=== PATIENT | female | born 1970 | race Caucasian/White ===

== ENCOUNTER → 2018-05-05 | Outpatient (CLI) | payer OTHER ==
[2018-05-05 13:35] VITALS: BP 121/82
--- NOTE | 2018-05-05 14:15 | P.GSHP ---
History of Present Illness H&P Date: 05/05/18 The patient is a 48-year-old white female who states that several weeks ago she had some itching of her left nipple. She scratched the area and she noted that she has some discharge. The discharge was brown in nature and occurred spontaneously whether she itched or not. She still continues to have some spontaneous discharge. She has no masses in her breast. She has no pain in her breast. She had a bilateral mammogram performed 04/21 18 which showed a 1.2 cm round circumscribed mass at the 2 o'clock position of the left breast. This was new from prior exam. Otherwise no significant change. Nothing of concern noted in the right breast. The plan was for ultrasound of the left breast in the subareolar region as well as the upper outer quadrant area at the 2 o'clock position. These results are to be reviewed. The patient drinks green tea at least 5-6 bottles per day. The patient smokes at about three quarters of a pack of cigarettes per day. family history: 1. none for cancer past surgical history: 1. hysterectomy: bleeding/prolapsed uterus took, one ovary 2. oral surgery 3. cataract surgery past medical history: 1. asthma 2. thyroid in the past/hyperthyroid 3. pituitary told abnormal twenty years ago menarche: 15 hysterectomy: 40 BCP/hormones: none : 3, 2 children breast fed both ROS: HEENT:cataract surgery 4 years ago Lungs: none heart: none GI: none Gu: hysterctomy as noted allergies: seasonal gets shots two times a week neruologic: none Psych: none Social history: smoke: 3/4 PPD alcohol: twice a week drugs: marijuana in the past, not for 28 years - Constitutional Constitutional: Denies chills, Denies fever - EENT Eyes: bilateral as per HPI Ears: left: decreased hearing, ear discharge (left ear drum ruptured in the past ), earache, deny: tinnitus Ears, nose, mouth and throat: Denies headache, Denies sore throat - Breasts Breasts: bilateral: as per HPI - Cardiovascular Cardiovascular: Denies chest pain, Denies shortness of breath - Respiratory Comment: asthma, smoker Respiratory: Denies cough, Denies 7 - Gastrointestinal Gastrointestinal: Denies abdominal pain, Denies diarrhea, Denies nausea, Denies vomiting - Genitourinary (Female) Genitourinary: Reports as per HPI, Denies dysuria, Denies hematuria - Musculoskeletal Musculoskeletal: Denies myalgias - Integumentary Comment: hives at times possible nerves Integumentary: Denies pruritus, Denies rash - Neurological Neurological: Denies numbness, Denies weakness - Psychiatric Psychiatric: Denies anxiety, Denies depression - Endocrine Comment: weight loss after oral surgery Endocrine: Reports weight change, Denies fatigue - Hematologic/Lymphatic Comment: now ibuprofen not regularly - Allergic/Immunologic Allergic/Immunologic: Reports seasonal allergies Past Medical History Past Medical History: Asthma History of Any Multi-Drug Resistant Organisms: None Reported Past Surgical History: Hysterectomy, Tubal Ligation Additional Past Surgical History / Comment(s): D & C, LAPAROSCOPY, HYSTEROSCOPY , LEFT CATARACT. Past Anesthesia/Blood Transfusion Reactions: No Reported Reaction Additional Past Anesthesia/Blood Transfusion Reaction / Comment(s): SLOW TO WAKE UP Smoking Status: Current every day smoker - Past Family History Mother Family Medical History: No Reported History Medications and Allergies Home Medications Medication Instructions Recorded Confirmed Type Calcium Carbonate [Calcium] 600 mg PO DAILY 11/27/15 03/17/16 History 114/Iron A-G/Folate 1 1 each PO DAILY 11/27/15 03/17/16 History [Prenate Elite Tablet] Vitamin E 1,000 unit PO DAILY 11/27/15 03/17/16 History Albuterol Inhaler [Ventolin Hfa 1 - 2 puff INHALATION Q6HR PRN 03/13/16 History Inhaler] Allergies Allergy/AdvReac Type Severity Reaction Status Date / Time Sulfa (Sulfonamide Allergy Rash/Hives Verified 03/17/16 12:53 Antibiotics) Surgical - Exam Vital Signs BP 121/82 05/05/18 13:29 - General well developed, well nourished, no distress - Eyes normal ocular movement, no icteric - ENT normal pinna, no hearing loss - Neck no masses, trachea midline, no lymphadectomy - Respiratory normal respiratory effort, clear to auscultation - Cardiovascular Rhythm: regular Heart Sounds: normal: S1, S2 - Abdomen Abdomen: soft, non tender, no guarding, no rigid, no rebound - Integumentary hives - Neurologic no disoriented, no combative - Psychiatric oriented to time, oriented to person, oriented to place, speech is normal, memory intact Breast examination: Right breast: Multiple positional exam no dominant masses or nodules of concern Right axilla: No adenopathy of concern Left breast: Multi-positional exam fibrocystic changes and the patient is noted to have nipple discharge with examination in the 6 oclock area of the nipple, the nipple discharge is yellow brown in nature, it occurs with manipulation. Evaluation of the areola does not reveal any specific changes of concern. Left axilla: No adenopathy of concern Hemoccult was performed of the discharge and this was negative for blood A slide was obtained of the discharge and this is being sent for cytology Results Reports of mammogram and ultrasound reviewed Assessment and Plan Assessment: Impression/plan: 1. Nipple discharge left breast with itching noted 2. Discharge Hemoccult negative 3. Cytology obtained 4. Recent oral surgery 5. Questionable pituitary lesion in the past 6. ? hyperthyroid in the past 7. hives Plan: 1. Hydrocortisone cream to affected area of the areola 2.5% to be applied twice a day 2. Await cytology 3. Suspect nipple discharge is related to fibrocystic disease 4. Medical management of medical problems 5. Follow-up in 2 weeks Cc: Dr. Arciniega
== END | disposition home or self-care (01) ==
LOC: WWCWWP 13:25
PROVIDERS: ATTEND Surgery
DX: N64.52 Nipple discharge (principal)
CPT/HCPCS: 88160

== ENCOUNTER → 2018-05-12 | Outpatient (CLI) | payer OTHER ==
[2018-05-12 13:27] VITALS: BP 141/87; PULSE 96; BMI 17.5
--- NOTE | 2018-05-12 13:36 | P.PN ---
Progress Note - Text Progress Note Date: 05/12/18 Patient is a 48-year-old white female who presents status post aspiration of the cyst in the left breast. The cyst does not appear to have recurred after aspiration. There is no evidence of any infection the patient has no complaints. Pathology was benign. Additionally the patient had some itching around the area over area of which has decreased. She has been using hydrocortisone cream. There is no evidence of any excoriation or infection. Impression/plan: 1. Fibrocystic breast disease 2. Prior itching at the areolar area Plan: 1. Repeat ultrasound of the left breast in 6 months time with physician exam at that time 2. Patient notices any changes prior would like to see her sooner. Cc: Physician covering Dr. Cookie Mccall at [facility]
== END | disposition home or self-care (01) ==
LOC: WWCWWP 13:02
PROVIDERS: ATTEND Surgery
DX: Z53.9 Procedure and treatment not carried out, unspecified reason (principal)

== ENCOUNTER → 2018-11-11 | Outpatient (CLI) | payer OTHER ==
--- NOTE | 2018-11-14 07:57 | USB ---
Reason for exam: additional evaluation requested from prior study. Physical Findings: Nurse Summary: 1cm round, tender, movable lump right breast 1 'clock (nurse mj). US Breast Limited BILAT Right limited breast ultrasound including focal area of concern, retroareolar and axilla demonstrates a 0.7 x 0.5 x 0.7cm hypoechoic lesion at 11 o'clock and a 0.5 x 0.2 x 0.3cm lesion too small to characterize at 2 o'clock. Left complete breast ultrasound includes all four quadrants, the retroareolar region and axilla. Finding demonstrates a 0.6 x 0.4 x 0.5cm cystic lesion at 2 o'clock decreased from 04/21/18 and a 0.7 x 0.3 x 0.5cm cystic cluster at 4 o'clock. These results were verbally communicated with the patient and result sheet given to the patient on 11/11/18. ASSESSMENT: Suspicious, BI-RAD 4 RECOMMENDATION: Ultrasound core biopsy of the right breast. (11 'clock) Called with mammographic findings and has scheduled an appointment for the patient for 11/18/18 at 11:[address] [place]. Biopsy scheduled for 12/01/18 at 12:20. PRELIMINARY REPORT CALLED AND FAXED TO DR. CANADA ON 11/14/18.
== END | disposition home or self-care (01) ==
LOC: RADUSWWP 13:41
PROVIDERS: ATTEND Surgery
DX: R92.8 Other abnormal and inconclusive findings on diagnostic imaging of breast (principal)

== ENCOUNTER → 2018-11-18 | Outpatient (CLI) | payer OTHER ==
[2018-11-18 11:43] VITALS: BP 139/84; PULSE 82; RESP 18; TEMP 96.3; BMI 18.7
--- NOTE | 2018-11-18 12:01 | P.PN ---
Subjective Progress Note Date: 11/18/18 Principal diagnosis: abnormal ultrasound of the right breast Aaron is a 48-year-old white female who was seen initially in April 2018 with some itching of the left nipple area as well as an ultrasound change revealing a 1.2 cm round circumscribed mass at the 2 o'clock position of the left breast. She subsequently underwent aspiration of the area. She used hydrocortisone cream at the area of the skin around the nipple which has resolved. The patient most recently underwent a bilateral ultrasound on [id number]. On this ultrasound she is now noted to have a 0.7 cm hypoechoic lesion at 11:00 for which biopsy is recommended. The patient does not note any lumps or masses in her breast. The patient continues to drink green tea. And she continues to smoke approximately three quarters of pack of cigarettes per day. Family history: Negative for cancer Past surgical history: 1. Hysterectomy: Bleeding/prolapsed uterus 1 ovary removed 2. Oral surgery 3. Cataract surgery Past medical history: 1. Asthma 2. Thyroid in the past she was hyperthyroid 3. Pituitary told this was abnormal approximately 20 years ago Hormonal history: Menarche: 15 Hysterectomy: 40 control pills/hormones: None Pregnancies: 3, 2 children breast fed both Social history: Smoke: Three quarters pack of cigarettes per day Alcohol: Several times a week Drugs: Negative Review of systems: HEENT: Hyperthyroid in the past Lungs: Nicotine dependence, asthma Heart: Getting of GI: Negative : Hysterectomy Musculoskeletal: Negative Psychiatric: Negative Objective - Vital Signs Vital signs: Vital Signs Temp 96.3 F L 11/18/18 11:34 Pulse 82 11/18/18 11:34 Resp 18 11/18/18 11:34 BP 139/84 11/18/18 11:34 Pulse Ox 97 11/18/18 11:34 Intake & Output 11/17/18 11/18/18 11/18/18 18:59 06:59 18:59 Weight 49.442 kg - Exam BMI 18.7 - Constitutional General appearance: Present: cooperative, no acute distress, thin - EENT Eyes: Present: EOMI ENT: Present: hearing grossly normal - Neck Neck: Present: normal ROM - Respiratory Respiratory: bilateral: CTA, negative: dullness, rales, rhonchi - Cardiovascular Rhythm: regular Heart sounds: normal: S1, S2 - Gastrointestinal General gastrointestinal: Present: soft - Integumentary Integumentary: Present: normal turgor - Musculoskeletal Musculoskeletal: Present: gait normal - Psychiatric Psychiatric: Present: A&O x's 3, appropriate affect, intact judgment & insight - Additional findings Additional findings: Breast examination: Right breast: Breast is very dense on multi-positional exam some slight increased nodularity at the 2 o'clock position, attention at the 11 o'clock position reveals dense tissue but no discrete mass Right axilla: No adenopathy of concern Left breast: Dense breast tissue on multi-positional exam no discrete dominant mass or nodule of concern Left axilla: No adenopathy of concern Assessment and Plan Assessment: Impression: 1. Bilateral dense fibrocystic breast changes 2. Recent ultrasound reveals area of concern at 11:00 in the right breast for which ultrasound core biopsy recommended 3. Physical examination reveals increased nodularity at 2 o'clock position in the right breast will reevaluate after ultrasound core biopsy 4. Nicotine dependence 5. Asthma 6. hyperthyroid in the past Plan: 1. right breast ultrasound core biopsy/than follow up 2. re-evaluate 2:00 area of the right breast following the ultrasound core biopsy 3. Medical management of medical conditions CC: at [facility]
== END ==
LOC: WWCWWP 11:20
PROVIDERS: ATTEND Surgery
DX: Z53.9 Procedure and treatment not carried out, unspecified reason (principal)

== ENCOUNTER → 2018-12-01 | Day surgery (SDC) | payer OTHER ==
[2018-12-01 11:36] VITALS: RESP 16; BMI 17.8
--- NOTE | 2018-12-01 13:50 | USB ---
EXAMINATION TYPE: US biopsy breast VAD RT, MG diagnostic mammo RT wo CAD, US breast aspiration single RT DATE OF EXAM: 12/01/2018 CLINICAL HISTORY: ABNORMAL MAMMOGRAM. TECHNIQUE: Ultrasound guided core biopsy of right breast. COMPARISON: 11/11/2018 FINDINGS: The procedure of ultrasound guided core biopsy was explained to the patient. Benefits, alt ernatives, and risks were discussed. An informed consent was then obtained. Preprocedural timeout w as performed. SITE A: 11:00 mass. The patient was placed in supine positioning for imaging and for the procedure. T he overlying skin was prepped and draped in usual sterile fashion. 10 cc of lidocaine buffered with b icarbonate was used as anesthetic into the skin and subcutaneous tissue up to the 0.7 x 0.5 x 0.7 cm hypoechoic lesion at 11:00 position in the right breast. This mass appears possibly as a complicated cyst on today's examination. Under ultrasound guidance, a 12-gauge vacuum assisted biopsy gun device was used to obtain 4 core rajan ples. Following this, a coil-shaped biopsy marker was left directly adjacent to the mass. Postproce dural mammography demonstrates appropriate clip placement. SITE B: 2:00 mass. The patient was placed in supine positioning for imaging and for the procedure. Th e overlying skin was prepped and draped in usual sterile fashion. 10 cc of lidocaine buffered with bi carbonate was used as anesthetic into the skin and subcutaneous tissue up to the 2 x 3 mm mass at the 2:00 position in the right breast. Under ultrasound guidance an 18-gauge spinal needle was advanced into the mass, which collapsed upon puncture with the spinal needle. No significant fluid was withdrawn and therefore no fluid was availa ble to send to pathology. The patient tolerated the procedure well without any immediate complication. The patient was kept in the radiology department for short stay after the procedure and then discharged home in stable condi tion. IMPRESSION: Successful, uncomplicated ultrasound guided core biopsy of a mass, possibly complicated c yst, at the 11:00 position in the right breast, full pathology results to follow. Cyst aspiration of the 2:00 position in the right breast was also performed with no significant fluid retrieval.
[2018-12-01 15:11] VITALS: BP 137/87; PULSE 78; TEMP 98.1
== END | disposition home or self-care (01) ==
LOC: RADUSWWP 10:58
PROVIDERS: ATTEND Surgery
DX: N60.21 Fibroadenosis of right breast (principal); N60.31 Fibrosclerosis of right breast; N60.01 Solitary cyst of right breast; N60.81 Other benign mammary dysplasias of right breast
CPT/HCPCS: 88305; 77065; 19000; 19083; A4648; J2001; 76942

== ENCOUNTER → 2018-12-08 | Outpatient (CLI) | payer OTHER ==
[2018-12-08 15:30] VITALS: BP 145/84; PULSE 78; RESP 18; TEMP 97.7; BMI 17.8
--- NOTE | 2018-12-08 15:54 | P.PN ---
Subjective Progress Note Date: 12/08/18 Principal diagnosis: Status post ultrasound-guided core biopsy right breast The patient is a 48-year-old white female status post right breast ultrasound- guided core biopsy on 1318. Pathology was benign. The patient is doing well at this time. She does have some mild ecchymosis and slight swelling at the site. Objective - Vital Signs Vital signs: Vital Signs Temp 97.7 F 12/08/18 15:24 Pulse 78 12/08/18 15:24 Resp 18 12/08/18 15:24 BP 145/84 12/08/18 15:24 Pulse Ox 99 12/08/18 15:24 Intake & Output 12/07/18 12/08/18 12/08/18 18:59 06:59 18:59 Weight 47.174 kg - Exam BMI 17.9 - Constitutional General appearance: Present: average body habitus, cooperative - EENT Eyes: Present: EOMI ENT: Present: hearing grossly normal - Neck Neck: Present: normal ROM - Respiratory Respiratory: bilateral: CTA - Cardiovascular Rhythm: regular Heart sounds: normal: S1, S2 - Gastrointestinal General gastrointestinal: Present: soft - Integumentary Integumentary: Present: normal turgor - Musculoskeletal Musculoskeletal: Present: gait normal - Psychiatric Psychiatric: Present: A&O x's 3, appropriate affect - Additional findings Additional findings: Breast examination: Right breast: core biopsy site mild ecchymosis with a small hematoma no evidence of infection Assessment and Plan Assessment: Impression: 1. Fibrocystic breast changes right breast core biopsy site Plan: Right breast ultrasound in 6 months with physician exam at that time CC: [facility]
== END | disposition home or self-care (01) ==
LOC: WWCWWP 14:31
PROVIDERS: ATTEND Surgery
DX: Z53.9 Procedure and treatment not carried out, unspecified reason (principal)

== ENCOUNTER 2025-06-06 17:18 | Emergency (ER) | payer OTHER ==
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
[2025-06-06 17:48] VITALS: RESP 18
[2025-06-06] MEDS: SODIUM CHLORIDE 0.9% 1,000 ML IV ONE (18:03)
[2025-06-06 18:31] LABS: Bilirubin,Urine Negative (Negative); Blood,Urine Negative (Negative); Color,Urine Colorless; Glucose,Urine (UA) Negative (Negative); Ketones,Urine Negative (Negative); Leukocyte Esterase,Urine Trace (Negative); Nitrite,Urine Negative (Negative); PH, Urine 5.5 (5.0-8.0); Protein,Urine Negative (Negative); RBC,Urine <1 /hpf (0-5); Specific Gravity,Urine 1.010 (1.001-1.035); Urobilinogen,Urine <2.0 mg/dL (<2.0); WBC,Urine 2 /hpf (0-5)
[2025-06-06 18:36] LABS: HCT 34.5 % (37.2-46.3); HGB 11.6 g/dL (12.0-15.0); MCH 31.2 pg (27.0-32.0); MCHC 33.6 g/dL (32.0-37.0); MCV 92.7 fL (80.0-97.0); Platelet Count 497 10*3/uL (140-440); RBC 3.72 10*6/uL (4.10-5.20); RDW 14.1 % (11.5-14.5); WBC 5.43 10*3/uL (4.50-10.00)
[2025-06-06 18:44] LABS: ALT 36 U/L (4-34); AST 39 U/L (14-36); African American GFR (CKD) >90 (>60 ml/min/1.73 sqM); Albumin 4.0 g/dL (3.5-5.0); Alkaline Phosphatase 91 U/L (38-126); Anion Gap 12 mmol/L; Blood Urea Nitrogen 21 mg/dL (7-17); Calcium 9.5 mg/dL (8.4-10.2); Carbon Dioxide 21 mmol/L (22-30); Chloride 103 mmol/L (98-107); Glucose 83 mg/dL (74-99); Magnesium 2.0 mg/dL (1.6-2.3); Non-African American GFR(CKD) >90 (>60 ml/min/1.73 sqM); Potassium 4.8 mmol/L (3.5-5.1); Sodium 136 mmol/L (137-145); Total Protein 6.6 g/dL (6.3-8.2)
[2025-06-06 18:47] LABS: INR 0.9 (<1.2); Partial Thromboplastin Time 22.2 sec (22.0-30.0); Prothrombin Time 9.7 sec (10.0-12.5)
[2025-06-06 18:51] LABS: NT-Pro-B-Type Natriuretic Pept 134 pg/mL
[2025-06-06 19:30] LABS: Lymphocytes # (M) 1.68 k/uL (1.0-4.8); Monocytes # (M) 0.76 k/uL (0-1.0); Neutrophils # (M) 2.98 k/uL (1.3-7.7); Neutrophils % (M) 51 %; Total Cells Counted 100
[2025-06-06 19:31] LABS: RBC Morphology Normal
--- NOTE | 2025-06-06 20:24 | CT ---
EXAMINATION TYPE: CT brain wo con DATE OF EXAM: 06/06/2025 8:01 PM COMPARISON: None. CLINICAL INDICATION: Female, 55 years old with history of dizzy, dizzy TECHNIQUE: Brain: Axial CT images of the brain were obtained with coronal and sagittal reformats created and rev iewed. Contrast used: None. Oral contrast used: None. CT DLP: 1141.3 mGycm, Automated exposure control for dose reduction was used. FINDINGS: Brain: Extra-axial spaces: No abnormal extra-axial fluid collections. Ventricular system: Within normal limits Cerebral parenchyma: No acute intraparenchymal hemorrhage or mass effect. The johns-white junction is well differentiated. Cerebellum: Unremarkable. Mass effect: No evidence of midline shift. Intracranial vasculature: unremarkable Soft tissues: Normal. Calvarium/osseous structures: No depressed skull fracture. Paranasal sinuses and mastoid air cells: Mild scattered paranasal sinus disease. Visualized orbits: Orbital contents are intact. IMPRESSION: No acute intracranial process. [facility], , 06/06/2025 8:22 PM
--- NOTE | 2025-06-06 20:45 | CT ---
EXAMINATION TYPE: CT angio head neck DATE OF EXAM: 06/06/2025 8:03 PM COMPARISON: CT brain. CLINICAL INDICATION: Female, 55 years old with history of dizzy; PHH, dizzy TECHNIQUE: Axially acquired helical CT angiogram of the head and neck was obtained with contrast. Axi al images are supplemented with 3D reconstructions and MIP images which were post-processed at an in dependent workstation. NASCET criteria used. Contrast used:65 mL of Isovue 370 with IV Contrast, Oral contrast used: None. CT DLP: 1464.5 mGycm, Automated exposure control for dose reduction was used. FINDINGS: CTA HEAD: No evidence of acute intracranial hemorrhage, mass effect, or midline shift. The ventricles, sulci, a nd cisterns are unremarkable. Vertebral arteries: The vertebral arteries are patent. Vertebral artery dominance: Codominant Basilar artery: The basilar artery is intact. The basilar artery bifurcation is normal. Internal Carotid arteries: The cervical, petrous, cavernous and supraclinoid segments are normal. MEME: Patent with no evidence of aneurysm. ACOM: Present without evidence of aneurysm. MCA: Patent with no evidence of aneurysm. HAIR COLORIST: Patent with no evidence of aneurysm. PCOM: Hypoplastic bilaterally. Dural sinuses: Patent. CTA NECK: Right Carotid System: The common carotid artery and external carotid artery are patent. The carotid bifurcation demonstrate s no evidence of hemodynamically significant stenosis. The remaining portions of the internal carotid artery demonstrate normal size without significant narrowing. Left Carotid System: The common carotid artery and external carotid artery are patent. The carotid bifurcation demonstrate s no evidence of hemodynamically significant stenosis. The remaining portions of the internal carotid artery demonstrate normal size without significant narrowing. Vertebral arteries are patent without evidence hemodynamically significant stenosis. There is a three-vessel aortic arch. The origins of the great vessels are patent. No evidence of hemo dynamically significant stenosis. Upper thorax: Scattered airspace opacities and consolidation changes throughout the lungs superimpose d on moderate to severe emphysema. IMPRESSION: 1. No evidence of dissection of the cervical internal carotid arteries or vertebral arteries. 2. No any evidence of significant stenosis at the carotid bifurcations. 3. No evidence of intracranial high-grade stenosis or intracranial aneurysm. 4. Scattered airspace opacities and consolidation changes throughout the lungs superimposed on moder ate to severe emphysema. Correlate for infection. [facility], , 06/06/2025 8:42 PM
[2025-06-06 21:17] VITALS: BP 129/87; PULSE 89; TEMP 98.7
== END 2025-06-06 21:17 | disposition home or self-care (01) ==
LOC: EC 17:18
DX: R42 Dizziness and giddiness (principal); Z88.2 Allergy status to sulfonamides
CPT/HCPCS: 36415; 93005; 83880; 80053; 83605; 83735; 84100; 84443; 84484; 85025; 85610; 85730; 81001; 70496; 70450; 70498; 99284; 96360; G0480; Q9967; 80320